=== PATIENT | male | born 1985 | race African-American/Black ===

== ENCOUNTER 2020-05-19 15:42 | Emergency (ER) | payer OTHER ==
--- NOTE | 2020-05-19 15:44 | ED Physician Documentation ---
PD HPI UPPER EXT INJURY - Stated complaint Stated Complaint: LT FINGER LAC - History obtained from History obtained from: Patient - History of Present Illness Location: Left, Finger (ring) Type of injury: Laceration (cut finger tip with knife while food prepping at home. Small avulsion of tip, and here mainly as it does not want to stop bleeding. Nail not involved.) Where injury occurred: Home Timing - onset: How many minutes ago (30) Timing - duration: Minutes (30) Timing - details: Abrupt onset Improved by: Other (not improved with direct pressure for 5-10 minutes.) Worsened by: Palpating Associated symptoms: No: Weakness, Numbness Contributing factors: No: Anticoagulated Similar symptoms before: Has not had sx before Review of Systems Skin: reports: Laceration (s) Neurologic: denies: Focal weakness, Numbness PD PAST MEDICAL HISTORY - Past Medical History Past Medical History: No - Allergies Allergies/Adverse Reactions: Allergies Allergy/AdvReac Type Severity Reaction Status Date / Time No Known Drug Allergies Allergy Verified 05/19/20 15:47 PD ED PE NORMAL - Vitals Vital signs reviewed: Yes - General General: Alert and oriented X 3, No acute distress, Well developed/nourished - Derm Derm: Normal color, Warm and dry - Extremities Extremities: Other - Neuro Neuro: Alert and oriented X 3, No motor deficit, No sensory deficit, Normal speech Results - Vitals Vitals: Vital Signs - 24 hr 05/19/20 15:47 Temperature 36.5 C Heart Rate 74 Respiratory 16 Rate Blood Pressure 152/88 H O2 Saturation 96 Oxygen O2 Source Room air PD MEDICAL DECISION MAKING - ED course Complexity details: re-evaluated patient (continued bleeding despite direct pressure awhile, so did local lidocaine which diminished the bleeding and then battery cautery to seal the capillary bleeding. Pressure dressing with xeroform applied. ), considered differential (small avulsion just under 1 cm size, so should heal in okay. ), d/w patient Departure - Departure Disposition: 01 Home, Self Care Clinical Impression: Avulsion of finger tip Qualifiers: Encounter type: initial encounter Qualified Code(s): S61.209A - Unspecified open wound of unspecified finger without damage to nail, initial encounter Condition: Stable Record reviewed to determine appropriate education?: Yes Instructions: ED Avulsion Dermal Comments: Leave the initial dressing on for a day and then remove it gently and clean the area with soap and water once or twice daily and apply just simple dressing and then Band-Aids. Recheck if signs of infection. Tylenol ibuprofen as needed for pains. This is small enough that it should heal in from the edges with a new skin over about a 1-1/2 to 2 weeks. Discharge Date/Time: 05/19/20 16:19
[2020-05-19 15:49] VITALS: BP 152/88
== END 2020-05-19 16:19 | disposition home or self-care (01) ==
LOC: ED 15:42
DX: S61.215A Laceration without foreign body of left ring finger without damage to nail, initial encounter (principal); W26.0XXA Contact with knife, initial encounter; Y93.G1 Activity, food preparation and clean up; Y92.009 Unspecified place in unspecified non-institutional (private) residence as the place of occurrence of the external cause
CPT/HCPCS: 12001; 99281; 99282